=== PATIENT | male | born 1980 | race Caucasian/White ===

== ENCOUNTER 2018-10-08 20:39 | Emergency (ER) | payer BC, OTHER ==
[2018-10-08 22:09] LABS: #Basophils 0.1 thou/uL (0.0-0.2); #Eosinphils 0.1 thou/uL (0.0-0.7); #Lymphocytes 1.8 thou/uL (1.20-3.40); #Monocytes 0.8 thou/uL (0.11-0.59); #Neutrophils 8.9 thou/uL (1.40-6.50); %Basophils 0.5 % (0.0-1.0); %Eosinophils 0.8 % (0.0-10.0); %Lymphocytes 15.5 % (21.0-51.0); %Monocytes 6.7 % (0.0-10.0); %Neutrophils 76.5 % (42.0-75.0); Hemoglobin 15.1 g/dL (14.0-18.0); Mean Corpuscular Hemoglobin 27.9 pg (27.0-31.0); Mean Corpuscular Volume 84.6 fL (78.0-98.0); Mean Platelet Volume 8.4 fL (7.4-10.4); Platelet Count 214 thou/uL (130-400); RBC Distribution Width 12.6 % (11.5-14.5); White Blood Cell (WBC) Count 11.6 thou/uL (4.8-10.8)
[2018-10-08 22:28] LABS: ALT (SGPT) 51 U/L (8-55); AST (SGOT) 24 U/L (5-34); Albumin 4.9 g/dL (3.5-5.0); Alkaline Phosphatase 59 U/L (40-150); Anion Gap 12 mmol/L (10-20); BUN (Urea Nitrogen) 12 mg/dL (8.9-20.6); Bilirubin, Total 0.7 mg/dL (0.2-1.2); Calc. Creatinine Clearance 0 mL/min (70-130); Calcium 9.7 mg/dL (7.8-10.44); Carbon Dioxide 25 mmol/L (22-29); Chloride 105 mmol/L (98-107); Estimated GFR-MDRD 78; Globulin 2.9 g/dL (2.4-3.5); Glucose 107 mg/dL (70-105); Lipase 41 U/L (8-78); Potassium 3.9 mmol/L (3.5-5.1); Protein, Total 7.8 g/dL (6.0-8.3); Sodium 138 mmol/L (136-145)
--- NOTE | 2018-10-09 00:14 | CT ---
CT abdomen with contrast CT pelvis with contrast: DATE: 10/09/2018 HISTORY: 37-year-old male with abdominal pain over hernia repair incision COMPARISON: None available TECHNIQUE: IV injection of iodinated contrast media:Administered Oral contrast media:Not administered FINDINGS: At the umbilicus and in the surrounding subcutaneous fat, there is a moderate amount of edema. The ed shila spills into the ventral aspect of the peritoneal cavity into the region of the omentum, involving a small region. There is no discrete hematoma or abscess. There is no herniation of bowel. No evidence of colonic diverticulitis. No small bowel dilation. No ascites or pneumoperitoneum. Urinary bladder, abdominal aorta, bilateral kidneys, adrenals, pancreas, liver, and spleen, are chuy l. No small bowel dilation. There is a retroaortic left renal vein. Normal appendix. IMPRESSION: Edema in the subcutaneous fat and a small amount of edema within the ventral aspect of the peritoneal cavity, all around the umbilicus. This is consistent with postsurgical changes at the ventral hernia repair site, based on history. It is uncertain whether this represents cellulitis complicating the surgery, or noninfected edema.
[2018-10-09] MEDS ORDERED: Sodium Chloride 0.9% 100 ML ONE (00:22)
[2018-10-09] MEDS ORDERED: Vancomycin HCl 500 MG VIAL ONE (00:22)
[2018-10-09] MEDS ORDERED: Sodium Chloride 0.9% 250 ML 250 ML ONE (00:22)
[2018-10-09] MEDS ORDERED: HYDROmorphone 0.5 MG/0.5 ML SYRINGE ONE (00:41)
[2018-10-09] MEDS ORDERED: Ciprofloxacin Lactate/D5W 400 mg/200 ml Premix ONE (03:48)
[2018-10-09] MEDS ORDERED: metroNIDAZOLE 500 MG/100 ML BAG ONE (04:33)
== END 2018-10-09 06:03 | disposition short-term general hospital (02) ==
LOC: MADERS 20:39
DX: L03.311 Cellulitis of abdominal wall (principal)
CPT/HCPCS: 74177; 80053; 83690; 85025; 96365; 96366; 96367; 96375; J0744; J1170; J3370; J3490; J7050

== ENCOUNTER 2024-06-15 15:30 | Emergency (ER) | payer OTHER ==
[2024-06-15] MEDS ORDERED: HYDROcodone/Acetaminophen 5/325 mg Tablet ONE (15:34)
[2024-06-15] MEDS ORDERED: Lidocaine 1% (PF) 30 ML VIAL ONE (15:46)
== END 2024-06-15 16:25 | disposition home or self-care (01) ==
LOC: MADERS 15:30
DX: S91.212A Laceration without foreign body of left great toe with damage to nail, initial encounter (principal); F17.220 Nicotine dependence, chewing tobacco, uncomplicated; W20.8XXA Other cause of strike by thrown, projected or falling object, initial encounter; Y93.89 Activity, other specified; Y99.0 Civilian activity done for income or pay
CPT/HCPCS: 12001; 99283